=== PATIENT | female | born 1970 ===

== ENCOUNTER 2017-06-01 21:02 | Emergency (ER) | payer MEDICAID, OTHER ==
[~2017-06-01] VITALS: Ht 157.5 cm; Wt 85.0 kg
[~2017-06-01 21:02] MED LIST: CITA20TA11 PO; IRON1TAB96 PO; OMEP-113 PO
[2017-06-01 21:19] VITALS: BP 132/86; PULSE 77; RESP 16; O2SAT 100
[2017-06-01 21:37] LABS: BASOPHILS % (AUTO) 0.4 % (0-3); EOSINOPHILS % (AUTO) 3.6 % (0-5); Mean Corpuscular Hemoglobin 29.5 pg (27.0-35.0); Mean Corpuscular Volume 86.3 fL (81-100); NEUTROPHILS % (AUTO) 69.7 % (40-74); Platelet Count 328 bil/L (150-400)
--- NOTE | 2017-06-01 21:38 | ED.REPORT ---
HPI-Abd Pain F 40 and Over Date of Service Jun 01, 2017 ED Provider: Jayme Johnson DO Pt is a 46 year old female with a history of hypothyroidism who presents to the ED complaining of RLQ abdominal pain onset today. She c/o associated nausea and diarrhea (resolved after 2 days). She denies headache, fever, decreased appetite , vomiting, neck pain, and extremity swelling. Nursing Notes Stated Complaint: LOWER RIGHT ABDOMINAL PAIN Chief Complaint: Female Abdominal Pain Nursing Notes Reviewed: Yes Allergies: Coded Allergies: No Known Allergies (Verified Allergy, Unknown, 03/18/14) Scheduled Citalopram (Citalopram) 20 Mg Tablet 20 MG PO BID Iron &Iron Asp Gly/Fa/Mv,Min38 (Iron Tablet) 1 Each Tablet 1 EACH PO DAILY 125/25/1 Omeprazole Magnesium (Omeprazole) 20 Mg Capsule.dr 20 MG PO BID General Time Seen by MD: 21:38 Chief Complaint Abdominal pain Hx Obtained From: Patient Arrived By: Walk-in Sudden in Onset?: No Onset Occurred: Just prior to arrival Symptom Duration: Since onset Location: : RLQ Quality: Painful Radiation: : Does not radiate Severity: Current: Moderate Severity: Maximum: Moderate Recent Healthcare: No recent doctor visit, No recent hospitalization Similar Sx Previous: No Past Medical History Past Medical History Genital herpes Hypothyroid Reports: Migraines Past Surgical History Reports: Tubal ligation Smoking History Current Every Day Smoker Social History Alcohol Use: Denies alcohol use Drug Use: Denies drug use Ambulatory Status Independent Review of Systems Denies decreased appetite Constitutional: Denies: Fever GI: Reports: Abdominal pain, Diarrhea, Nausea, Denies: Vomiting Musculoskeletal: Denies: Extremity pain, Neck pain Complete sys rev & neg: except as marked. Neurologic: Denies: Headache Physical Exam Vital Signs Vital Signs (First) Date Time Temp Pulse Resp B/P Pulse Ox O2 Delivery O2 Flow Rate FiO2 06/01/17 21:19 36.9 77 16 132/86 100 Room Air Initial VS: Reviewed Head / Eyes: Atraumatic, Normocephalic Neck: Supple, Full range of motion Extremities: Vascular intact, Neuro intact Skin: Warm, Dry, No cyanosis Neurologic: Alert, Oriented, Nonfocal Psychiatric: Mood/affect normal, Behavior normal General/Constitutional: Awake, Alert Respiratory / Chest: Atraumatic, Breath sounds NL, Breath sounds = bilat Cardiovascular: Heart rate NL, Regular rhythm, Heart sounds NL Abdomen: Atraumatic, Soft Moderate RLQ tenderness Back: Atraumatic, Full range of motion Interpretation & Diagnostics Lab Results Interpretation Result Diagram: 06/01/17213306/01/172133 Test 06/01/17 21:34 06/01/17 22:22 White Blood Count 11.2th/mm3 (3.8-10.1) Red Blood Count 4.31mil/mm3 (3.90-5.20) Hemoglobin 12.7g/dL (12.0-15.6) Hematocrit 37.2% (35.0-46.0) Mean Corpuscular Volume 86.3fL (81-100) Mean Corpuscular Hemoglobin 29.5pg (27.0-35.0) Mean Corpuscular Hemoglobin Concent 34.1% (32.0-37.0) Red Cell Distribution Width 13.0% (12.3-15.4) Platelet Count 328bil/L (150-400) Neutrophils (%) (Auto) 69.7% (40-74) Lymphocytes (%) (Auto) 20.2% (14-46) Monocytes (%) (Auto) 6.0% (4-12) Eosinophils (%) (Auto) 3.6% (0-5) Basophils (%) (Auto) 0.4% (0-3) Sodium Level 138mEq/L (134-144) Potassium Level 4.1mEq/L (3.5-5.2) Chloride Level 102mEq/L (97-108) Carbon Dioxide Level 25mmol/L (18-29) Blood Urea Nitrogen 14mg/dL (6-24) Creatinine 0.66mg/dL (0.57-1.00) Estimat Glomerular Filtration Rate 139mL/min (>59) Glucose Level 105mg/dL (60-99) Calcium Level 9.3mg/dL (8.5-10.1) Magnesium Level 2.2mg/dL (1.6-2.6) Total Bilirubin 0.2mg/dL (0.0-1.2) Aspartate Amino Transf (AST/SGOT) 28U/L (0-50) Alanine Aminotransferase (ALT/SGPT) 48U/L (0-32) Alkaline Phosphatase 103U/L (25-150) Total Protein 7.3g/dL (6.4-8.4) Albumin 4.2g/dL (3.4-5.0) Lipase 34U/L (13-60) Hold [place] Top Tube Received (Received) Urine Color Yellow (YELLOW) Urine Appearance Clear (CLEAR,HAZY) Urine pH 7.0 (5.0-8.0) Urine Specific [place] 1.011 (1.003-1.035) Urine Protein Negativemg/dL (NEG,TRACE) Urine Glucose (UA) Negativemg/dL (NEGATIVE) Urine Ketones Negativemg/dL (NEGATIVE) Urine Occult Blood Negative (NEGATIVE) Urine Nitrite Negative (NEGATIVE) Urine Bilirubin Negative (NEGATIVE) Urine Urobilinogen Normalmg/dL (NORMAL) Urine Leukocyte Esterase Negative (NEGATIVE) Urine RBC 0-2/hpf (0-2) Urine WBC 0-5/hpf (0-5) Urine Epithelial Cells Few/hpf (NONE-MOD) Urine Crystals None seen (NONE SEEN) Urine Bacteria Few/hpf (NONE-FEW) Urine Hyaline Casts None/lpf (NONE) Urine Granular Casts None seen (NONE SEEN) Urine Waxy Casts None seen (NONE SEEN) Urine Red Blood Cell Casts None seen (NONE SEEN) Urine White Blood Cell Casts None seen (NONE SEEN) Urine Mucus None seen (None Seen) Urine Trichomonas None seen (NONE SEEN) Urine Yeast None (NONE SEEN) Urinalysis Comment None Urine Culture Reflexed Not indicated CT Abd / Pelvis Interpretation CONCLUSION: No acute intra-abdominal abnormality. Fatty liver. Diverticulosis without diverticulitis. Transmitted to the ED at 22:38 by Stephen Ferreira M.D Study type: Abdominal CT IV contrast Interpretation / Wet Read by: Interpret - Radiologist Re-Eval/Medical Decision Source of Hx: Old records Re-Evaluation/Progress #1: Time of Eval: 21:38 Re-Evaluation/Progress Note: Informed pt of plan for CT and labs. Pt understands and agrees with plan. All questions addressed. Re-Evaluation/Progress #2: Time of Eval: 23:25 Re-Evaluation/Progress Note: Pt rechecked. Informed pt of normal CT scan and labs. She has no pain or tenderness. She reports that she is feeling better after the medication. Informed pt of plan for discharge. Pt understands and agrees with plan for discharge. F/U instructions and RTER warnings given. All questions addressed. Counseled Regarding: Diagnosis, Lab results, Need for follow-up, When/why to return to ED Discharge & Departure Primary Impression: Abdominal pain Abdominal location: right lower quadrant Qualified Code: R10.31 - Right lower quadrant pain Additional Impression: Diarrhea Diarrhea type: unspecified type Qualified Code: R19.7 - Diarrhea, unspecified Disposition: Home Discharge Condition All VS Reviewed: Yes Condition: Stable Patient Instructions: Abdominal Pain (ED), Acute Diarrhea (ED) Additional Instructions: Rest tonight. Do not drive tonight as you have received sedating medications. Drink plenty of liquids. Take Tylenol and Motrin as directed for pain. Your CT scan showed a normal appendix. Your lab work is reassuring. Return to the emergency department for any new or concerning symptoms. Referrals: Supriya Dutton DO (PCP) [facility] Attestation Portions of this note were transcribed by Amarilys Amin. I, Dr. Johnson personally performed the history, physical exam and medical decision-making; I reviewed and confirmed the accuracy of the information in the transcribed note. Signed by : Domitila Peck, 06/01/17. copies to: Supriya Dutton Todd P DO Jun 01, 2017 21:38 Amarilys Pandey Jun 01, 2017 22:42
[2017-06-01] MEDS ORDERED: Ondansetron 2 mg/mL 2 mL Inj IVPUSH PRN (21:50)
[2017-06-01] MEDS ORDERED: HYDROmorphone 0.5 mg/0.5 mL iSecure Syringe IVPUSH PRN (21:50)
[2017-06-01 22:00] LABS: Magnesium 2.2 mg/dL (1.6-2.6)
[2017-06-01 22:43] LABS: APPEARANCE,URINE CLEAR (CLEAR,HAZY); COLOR,URINE YELLOW (YELLOW)
[2017-06-01 22:44] LABS: OCCULT BLOOD,URINE NEGATIVE (NEGATIVE); UROBILINOGEN,URINE NORMAL (NORMAL)
[2017-06-01 23:52] VITALS: BP 125/70; PULSE 61; RESP 17; O2SAT 99
[2017-06-02] MEDS ORDERED: Sodium Chloride LOK Flush 10 mL Syringe IVFLUSH SCH (00:30)
--- NOTE | 2017-06-02 07:50 | DRSVH ---
PROCEDURE: CT ABDOMEN AND PELVIS WITH CONTRAST ([id number]) INDICATIONS: RLQ PAIN, LEUKOCYTOSIS TECHNIQUE: After the administration of intravenous contrast, 5 mm thick sections acquired from the diaphragm to the symphysis. 5 mm coronal and sagittal reformats were acquired. For radiation dose reduction, the following was used: automated exposure control, adjustment of mA and/or kV according to patient nadia jenkins. COMPARISON: [facility], CT, ABD/PELVIS W/CON (PNL), 12/03/2013, 1:26. FINDINGS: Image quality: Excellent. ABDOMEN: Lung bases: Lung bases are clear. There is a small fat containing diaphragmatic hernia in the right hemidiaphragm. Heart size is normal. The Solid organs: There is mild diffuse hepatic fatty infiltration. Liver and spleen are normal in size and enhancement. Gallbladder is normal. Biliary system is non dilated. Pancreas enhances normally. No adrenal nodules. Kidneys demonstrate normal size and enhancement, without hydronephrosis. Peritoneum and bowel: Appendix is normal. There are scattered colonic diverticula. No evidence for a cute diverticulitis. Bowel loops demonstrate normal wall thickness and caliber. No free fluid or air . Nodes and vessels: No retroperitoneal or mesenteric adenopathy by size criteria. Aorta and inferior vena cava are normal in size. Miscellaneous: No ventral hernias. PELVIS: Genitourinary: Bladder wall thickness is normal. Uterus is normal. No adnexal mass or pathological free fluid. Miscellaneous: No inguinal hernias or adenopathy. Bones: No suspicious bony lesions. No vertebral body compression fractures. IMPRESSION: 1. No acute intra-abdominal process. 2. Normal appendix. 3. Diverticulosis. No acute diverticulitis. No significant discrepancy with the shift supervisor film processing radiology preliminary report. Dictated by: Landon Urban M.D. on 06/02/2017 at 7:45 Approved by: Landon Urban M.D. on 06/02/2017 at 7:48
== END 2017-06-01 23:52 | disposition home or self-care (01) ==
LOC: SED 21:02
DX: R10.31 Right lower quadrant pain (principal); R19.7 Diarrhea, unspecified; R11.0 Nausea; G43.909 Migraine, unspecified, not intractable, without status migrainosus; E03.9 Hypothyroidism, unspecified; F17.200 Nicotine dependence, unspecified, uncomplicated
CPT/HCPCS: 36415; 74177; 80053; 81000; 81025; 83690; 83735; 85025; 96374; 96375; 99285; J1170; J2405; Q9967